=== PATIENT | female | born 1960 | race Caucasian/White ===

== ENCOUNTER 2024-09-12 23:58 | Emergency (ER) | payer BC, SELFPAY ==
[2024-09-12 23:58] VITALS: BMI 19.2
[2024-09-13 00:04] VITALS: BP 126/81
[2024-09-13 01:01] VITALS: BP 115/78
[2024-09-13 02:00] VITALS: BP 116/76
--- NOTE | 2024-09-13 02:00 | ED.GENMED ---
History of Present Illness
General
Chief Complaint: Extremity Pain (non-traumatic)
Source: patient
Exam Limitations: none
Time Seen by Provider: 09/13/24 01:32
Nursing documentation reviewed up to this point in time: agreed with
History of Present Illness
History of Present Illness:
This is a 63-year-old woman who has history of lumbar disc disease with occasional flares who has undergone unremarkable left lower lumbar rhizotomy procedure several years ago and then more recently with return of left low back pain she underwent
similar left lumbar risotto me procedure on September 01. She states her back pain is generally lower back and she has never experienced sciatica in the past. During the procedure on September 01 she developed sudden severe left lateral leg pain which she
has never experienced with previous rhizotomy procedures. She states she got up from the table and then fell as her left leg felt numb and weak. She was assisted to a wheelchair, discharged to home. Left leg weakness has resolved but she
continues with significant pain left lateral leg that radiates down to her left dorsal foot. After multiple phone calls to [facility], she was started on a Medrol Dosepak for which she has 2 days left. Thus far no improvement.
She was also recently prescribed gabapentin yesterday, she has not started this as yet.
She is able to ambulate but admits to limping a bit with ambulation. She has had complete resolution of back pain. She denies abdominal pain, no saddle anesthesia, no difficulty moving her bowels or bladder. She denies fever nor chills.
Other than Medrol Dosepak she has not been taking anything else for pain.
She states she did schedule an appointment with her orthopedist, Dr. Mika Drew but the appointment was canceled for unknown reason.
She and her have a planned vacation to [place] in a week and a half to celebrate their anniversary.
Phy Exam
Physical Exam
Physical Exam:
GENERAL: 63-year-old woman appears her stated age, awake and alert, pleasant, appears in no acute distress. is accompanying.
EYE: anicteric
NECK: Supple, nontender, no meningismus, no significant adenopathy.
ENT: oral mucosa is moist. No rhinorrhea.
CARDIAC: Regular rate and rhythm. no murmur.
LUNGS: Clear breath sounds bilaterally, no acute respiratory distress, no wheezes/rales/rhonchi
ABDOMEN: Soft, nondistended, without focal tenderness, no r/g, no cvat. normoactive BS.
BACK: No midline bony tenderness. Patient sits up and lies down with ease. Straight leg raising is negative bilaterally.
NEUROLOGICAL: Alert and oriented x3, no focal neuro deficits. Motor strength is 5/5 bilaterally. Gross sensation is intact.
SKIN: Warm and dry, normal color, skin intact. No rash.
MUSCULOSKELETAL: No C/C/E. peripheral pulses are full and equal b/l. No palpable tenderness.
PSYCH: Normal and appropriate interaction.
Course
Orders/Labs/Results
Orders:
Orders
09/13/24 01:49
Gabapentin [Neurontin] 300 mg PO NOW STA
Ketorolac [Toradol] 30 mg IM NOW STA
Oxycodone/Acetaminophen [Percocet 5/325] 1 tablet PO NOW STA
Prednisone [Deltasone] 50 mg PO NOW STA
09/13/24 03:26
Ketorolac [Toradol] 30 mg IM NOW STA
09/13/24 03:27
Oxycodone/Acetaminophen [Percocet 5/325] 1 tablet PO NOW STA
Vital Signs
Initial and Last Documented VS:
Initial Vital Signs
Temp Pulse Resp BP Pulse Ox
98.8 F 99 20 126/81 97
09/13/24 00:04 09/13/24 00:04 09/13/24 00:04 09/13/24 00:04 09/13/24 00:04
Last Documented Vital Signs
Temp Pulse Resp BP Pulse Ox
98.8 F 99 20 110/74 94
09/13/24 00:04 09/13/24 00:04 09/13/24 00:04 09/13/24 04:00 09/13/24 04:00
MDM/Problems Addressed
Differential Diagnosis Includes:
Significant concern for surgical procedure related sciatica, I suspect irritation to left L4 nerve root.
Exam is otherwise reassuring, no focal neurodeficits, no weakness, nothing to suggest acute cord compression nor cauda equina syndrome. Nothing to suggest infectious process.
There is no edema, normal pulses, nothing to suggest vascular compromise.
At this point no indication for urgent imaging nor laboratory studies.
Recommend increasing steroid dose with a lengthier taper, recommend initiation of gabapentin and will give a one-time dose of Toradol for pain and will give a dose of Percocet as well.
Ultimately, patient will require follow-up with her orthopedic on site services specialist.
*Pulse Oximetry
Patient hypoxic: no
*Critical Care Note
Total Time (30-74mins, 75-104mins- exclusive of procedures): Not Applicable
Update Note
Update Note:
04:30
After second dose of Toradol and additional dose of Percocet patient is feeling markedly improved. Pain has improved from 8 out of 10 to now 2 out of 10.
Will discharge to home with recommendation she continue gabapentin 300 mg once a day over the next 3 days then increase to 300 mg twice daily.
Will discontinue Medrol Dosepak and change to a higher lengthier dose of prednisone taper.
Will add a short course of Percocet for as needed moderate pain.
Recommend prompt follow-up with senior it specialist for recheck.
ED Attending Note
-
Portions of this chart may have been created with voice recognition software.� Occasional wrong word or��sound alike� substitutions may have occurred due to the inherent limitations of voice recognition software.
Discharge Plan
Departure
Patient Disposition: Home (Routine Discharge)
Date of Disposition: 09/13/24
Time of Disposition: 04:38
Patient with high blood pressure during this ER visit?: No
Condition: Good
Discharge Problem:
Acute left-sided sciatica s/p Rhyzotomy
Instructions: Sciatica ED
Prescriptions:
New
prednisone 10 mg Tablet
See Rx Instructions .ROUTE .COMPLEX Qty: 45 0RF
Rx Instructions:
Take By Mouth:
50 mg daily x3 days, 40 mg daily x3 days,
30 mg daily x3 days, 20 mg daily x3 days,
10 mg daily x3 days
oxycodone-acetaminophen [Percocet] 5-325 mg Tablet
1 tab PO Q6HPRN PRN (Reason: pain) Qty: 10 0RF
Referrals:
Mika Cannon DO [Non-Admitting Privileges] - Next open appointment
Jimy Laird MD [Family Provider] - Call in 1-3 days for appt
Activity Restrictions/Additional Instructions:
Stop the Medrol Dosepak, I am changing to a higher/lengthier course of prednisone.
Start the gabapentin, 300 mg, 1 tablet at bedtime over the next 3 days, then increase to 300 mg twice daily.
While taking prednisone I when she had to avoid NSAIDs such as Motrin/Advil, Aleve. You can take Tylenol as needed for pain versus I have written a prescription for Percocet for as needed moderate to severe pain.
Interventions
Interventions:
*Risk Screen - Suicide Last Done: 09/13/24 00:04
*General Assessment Last Done: 09/13/24 00:04
*Neglect/Abuse Screening Last Done: 09/13/24 00:04
*ED- Fall Risk Assessment Last Done: 09/13/24 00:04
*ED COVID-19 Vaccine History Last Done: 09/13/24 00:04
ED-Skin Assessment Last Done: 09/13/24 00:44
ED-Peripheral Vascular Assessment Last Done: 09/13/24 00:44
ED-Musculoskeletal Assessment Last Done: 09/13/24 00:43
Discharge Date and Time
Print Language: ITALIAN
[2024-09-13] MEDS: NEURONTIN 300 MG PO (02:04)
[2024-09-13] MEDS: PERCOCET 5/325 1 TABLET PO ×2 (02:04→03:30)
[2024-09-13] MEDS: DELTASONE 50 MG PO (02:04)
[2024-09-13] MEDS: TORADOL 30 MG IM ×2 (02:05→03:31)
[2024-09-13 03:00] VITALS: BP 118/80
[2024-09-13 04:00] VITALS: BP 110/74
== END 2024-09-13 05:07 | disposition home or self-care (01) ==
LOC: EMR 23:58
PROVIDERS: EMERGENCY PHYSICIAN Emergency Medicine; FAMILY PHYSICIAN Family Medicine
DX: M54.32 Sciatica, left side (principal); Z98.890 Other specified postprocedural states
CPT/HCPCS: 96372; 99284